=== PATIENT | female | born 1990 | race Caucasian/White ===

== ENCOUNTER 2018-12-12 19:44 | Emergency (ER) | payer MEDICAID, OTHER ==
[~2018-12-12] VITALS: Ht 177.8 cm; Wt 98.0 kg
[~2018-12-12 19:44] MED LIST: LIDOcaine 1% W/epiNEPHrine 1:100,000 20ml vial ONE
[2018-12-12] MEDS ORDERED: ketorolac trometh inj. 60 MG/2 ML VIAL IM ONE (20:40)
[2018-12-12] MEDS ORDERED: TETanus/Pertussis (Acell)/Diphther VAC/PF (Tdap-Adult) 0.5ml syringe IM ONE (21:00)
[2018-12-12] MEDS ORDERED: LORazepam 0.5 MG tablet PO PRN (21:30)
--- NOTE | 2018-12-12 21:43 | NUR ---
provider at bedsie to repair lac, pt too restless and unalbe to settle. new order for ativan 0.5 mg tab. tetnus given. pts at bedside
--- NOTE | 2018-12-12 22:52 | NUR ---
KATIE BROWN AT BEDSIDE SUTURING. PT IS MORE CALM NOW 1 HR AFTER ATIVAN.
[2018-12-12] MEDS ORDERED: IBUP-1985 PO (23:31)
--- NOTE | 2018-12-13 00:21 | NUR ---
CLEANED SUTURED RT 2ND DIGIT, APPLIED ANTIBIOTIC OINTMENT, 4X4, AND GUAZE WRAP, GAVE PT DRESSING SUPPLIES
[2018-12-13 00:22] VITALS: BP 139/92
== END 2018-12-13 00:23 | disposition home or self-care (01) ==
LOC: ER 19:45
DX: S61.210A Laceration without foreign body of right index finger without damage to nail, initial encounter (principal); I10 Essential (primary) hypertension; Z88.7 Allergy status to serum and vaccine; Z79.899 Other long term (current) drug therapy; W25.XXXA Contact with sharp glass, initial encounter; Y93.89 Activity, other specified; Y92.89 Other specified places as the place of occurrence of the external cause; Y99.8 Other external cause status
CPT/HCPCS: 12002; 90471; 90715; 96372; 99283; J1885

== ENCOUNTER 2019-02-15 15:51 | Emergency (ER) | payer MEDICAID ==
[~2019-02-15] VITALS: Ht 177.8 cm; Wt 100.0 kg
[~2019-02-15 15:51] MED LIST changes: +IBUP-1985 PO; -LIDOcaine 1% W/epiNEPHrine 1:100,000 20ml vial ONE
[2019-02-15 15:57] VITALS: BP 141/86
[2019-02-15] MEDS ORDERED: ALPRAZolam 0.25mg tablet PO ONE (16:20)
[2019-02-15] MEDS ORDERED: CITA-311 PO (16:21)
[2019-02-15] MEDS ORDERED: ondansetron 4mg rapidly disintigrating tab PO ONE (16:40)
== END 2019-02-15 16:45 | disposition home or self-care (01) ==
LOC: ER 15:52
DX: F41.9 Anxiety disorder, unspecified (principal); F17.210 Nicotine dependence, cigarettes, uncomplicated; Z79.899 Other long term (current) drug therapy
CPT/HCPCS: 99284

== ENCOUNTER 2019-07-02 00:05 | Emergency (ER) | payer MEDICAID ==
[~2019-07-02] VITALS: Ht 177.8 cm; Wt 100.0 kg
[~2019-07-02 00:05] MED LIST changes: +CITA-311 PO
--- NOTE | 2019-07-02 00:11 | NUR ---
Pt sister [facility] [phone]
--- NOTE | 2019-07-02 00:21 | NUR ---
POISON CONTROL CONTACTED, SPOKE WITH SHEILA. ORDER LABS TO INCLUDE ETOH, UTOX, APAP AND ASA. IF THE MEDICATION WAS XANAX IT SHOULD PEAK IN 4 HRS. RECOMMENDS OBSERVATION FOR 6 HRS. WATCH FOR CNC DEPRESSION. SUPPORTIVE CARE AND AIRWAY MGMT. AVOID ROMAZICON IF PT TAKES BENZOS ON NORMAL BASIS.
--- NOTE | 2019-07-02 00:27 | NUR ---
PT STATES SHE DOESN'T WANT TO KILL HERSELF, SHE JUST TOOK A BUNCH OF BLUE PILLS AND TOOK 3 SHOTS OF MANUEL GOOSE VODKA. SHE STATES SHE'S NEVER ATTEMPTED SUICIDE. DOES NOT HAVE A PLAN, AND DOES NOT FEEL LIKE SHE WANTS TO "". SHE STATES FEELS LIKE SHE ISN'T A GOOD MOM.
[2019-07-02 00:57] LABS: BASOPHILS # (AUTO) 0.1 X10'3 (0-0.2); BASOPHILS % (AUTO) 0.9 % (0-1); EOSINOPHILS # (AUTO) 0.3 X10'3 (0-0.9); EOSINOPHILS % (AUTO) 4.1 % (0-6); HEMATOCRIT 42.2 % (35.0-45.0); HEMOGLOBIN 14.2 g/dl (12.0-16.0); LYMPHOCYTES # (AUTO) 3.1 X10'3 (1.1-4.8); LYMPHOCYTES % (AUTO) 47.3 % (21-51); MEAN CORPUSCULAR HEMOGLOBIN 29.7 PG (27.0-31.0); MEAN CORPUSCULAR HGB CONC 33.6 g/dL (33.0-36.5); MEAN CORPUSCULAR VOLUME 88.4 FL (78-98); MEAN PLATELET VOLUME 8.4 FL (7.4-10.4); MONOCYTES # (AUTO) 0.5 X10'3 (0-0.9); NEUTROPHILS # (AUTO) 2.6 X10'3 (1.8-7.7); NEUTROPHILS % (AUTO) 39.7 % (42-75); PLATELET COUNT 207 X10'3 (140-440); RED BLOOD COUNT 4.77 X10'6 (4.20-5.60); RED CELL DISTRIBUTION WIDTH 15.9 % (11.5-14.5); WHITE BLOOD COUNT 6.5 X10'3 (4.5-11.0)
--- NOTE | 2019-07-02 01:02 | NUR ---
PT ATTEMPTING TO LEAVE. SHE IS ASKED TO PLEASE RETURN TO HER ROOM AND SHE IS ADVISED THAT SHE IS ON A HOLD AND CAN'T LEAVE AT THIS TIME. SHE HAS AN UNSTEADY GAIT BUT IS ABLE TO AMBULATE WITH MINIMAL ASSIST BACK TO ROOM.
[2019-07-02 01:05] LABS: ALANINE AMINOTRANSFERASE 36 U/L (12-78); ALBUMIN 4.2 G/DL (3.4-5.0); ALBUMIN/GLOBULIN RATIO 1.1 (1.1-1.5); ALKALINE PHOSPHATASE 34 IU/L (46-116); ANION GAP 11 (8-16); ASPARTATE AMINO TRANSFERASE 29 U/L (10-37); BILIRUBIN,TOTAL 0.4 MG/DL (0.1-1.0); BLOOD UREA NITROGEN 14 MG/DL (7-18); CALCIUM 8.9 MG/DL (8.5-10.1); CHLORIDE 106 MMOL/L (99-107); GLUCOSE 88 MG/DL (70-104); POTASSIUM 3.1 MMOL/L (3.5-5.1); SODIUM 142 MMOL/L (135-145); TOTAL CARBON DIOXIDE 25.2 MMOL/L (24-32); eGFR 66 ML/MIN
[2019-07-02 01:14] LABS: ETHANOL 0.274 GM/DL (0.0-0.010)
[2019-07-02 01:15] LABS: ACETAMINOPHEN < 2.0 UG/ML (10-30)
--- NOTE | 2019-07-02 01:45 | NUR ---
Pt's gissell Ribeiro - [phone]
[2019-07-02] MEDS ORDERED: potassium Cl 20 mEq SR tablet PO ONE (01:50)
--- NOTE | 2019-07-02 02:11 | NUR ---
PT UNABLE SLEEPING AND WILL NOT WAKE UP ENOUGH TO TAKE THE MEDICATION. DR MCGRAW AWARE.
[2019-07-02 09:01] VITALS: BP 129/71
[2019-07-02 10:08] LABS: CLARITY,URINE SLIGHTLY CLOUDY (Clear); COLOR,URINE YELLOW (Yellow); GLUCOSE, URINE NEGATIVE (Neg); KETONES,URINE NEGATIVE (Neg); LEUKOCYTE ESTERASE ,URINE TRACE (Neg); NITRITES, URINE NEGATIVE (Neg); OCCULT BLOOD,URINE NEGATIVE (Neg); PROTEIN,URINE NEGATIVE (Neg); UA COLLECTION TYPE CLN CATCH MIDSTREAM; URINE HCG NEGATIVE (NEG); UROBILINOGEN,URINE 0.2 E.U/dL (0.2-1.0)
[2019-07-02 10:13] LABS: BACTERIA,URINE 1+ /HPF (Neg); MUCUS STRANDS MODERATE /LPF (Neg); RBC,URINE NONE SEEN /HPF (0-2); SQUAMOUS EPITHELIAL CELL,UR MANY /LPF (FEW); WBC,URINE 0-4 /HPF (0-4)
[2019-07-02 10:29] LABS: URINE AMPHETAMINE SCREEN NEGATIVE (Neg); URINE BARBITUATE SCREEN NEGATIVE (Neg); URINE BENZODIAZEPINES SCREEN POSITIVE (Neg); URINE CANNABINOID SCREEN NEGATIVE (Neg); URINE COCAINE SCREEN NEGATIVE (Neg); URINE METHADONE SCREEN NEGATIVE (Neg); URINE OPIATE SCREEN NEGATIVE (Neg); URINE PHENCYCLIDINE SCREEN NEGATIVE (Neg)
--- NOTE | 2019-07-02 13:08 | NUR ---
Report was given to Taylor DEXTER in preparation of transfer from ED7 to OF21.
--- NOTE | 2019-07-02 13:12 | NUR ---
Report called from Desi DEXTER. Pt transferred to OF via ambulation and placed in bed 21.
--- NOTE | 2019-07-02 13:13 | NUR ---
Pt escorted from ED78 to OF21 with this RN. She ambulated on her own.
--- NOTE | 2019-07-02 14:04 | NUR ---
Packet faxed to [facility]
[2019-07-02] MEDS ORDERED: NO HOME MEDS (15:14)
== END 2019-07-02 16:13 | disposition home or self-care (01) ==
LOC: ER 00:06
DX: R45.851 Suicidal ideations (principal); F11.10 Opioid abuse, uncomplicated; R40.0 Somnolence; F41.9 Anxiety disorder, unspecified; Z72.89 Other problems related to lifestyle
CPT/HCPCS: 36415; 80053; 80305; 80320; 80329; 81001; 81025; 84443; 85025; 99285